=== PATIENT | male | born 1965 | race American Indian/Alaskan Native ===

== ENCOUNTER 2023-09-27 16:16 | Emergency (ER) | payer MEDICAID ==
[~2023-09-27] VITALS: Ht 175.3 cm; Wt 92.2 kg
[2023-09-27 16:22] VITALS: BP 136/72; PULSE 96; RESP 18; TEMP 98.2; O2SAT 97
[2023-09-27 16:58] LABS: BASOPHILS # (AUTO) 0.1 X10'3 (0-0.2); BASOPHILS % (AUTO) 0.8 % (0-1); EOSINOPHILS # (AUTO) 0.1 X10'3 (0-0.9); EOSINOPHILS % (AUTO) 0.8 % (0-6); HEMATOCRIT 39.6 % (42.0-52.0); HEMOGLOBIN 13.5 g/dl (14.0-17.9); LYMPHOCYTES # (AUTO) 1.9 X10'3 (1.1-4.8); MEAN CORPUSCULAR VOLUME 88.2 FL (78-98); MEAN PLATELET VOLUME 7.9 FL (7.4-10.4); MONOCYTES # (AUTO) 0.7 X10'3 (0-0.9); MONOCYTES % (AUTO) 6.6 % (2-12); NEUTROPHILS # (AUTO) 7.7 X10'3 (1.8-7.7); NEUTROPHILS % (AUTO) 73.8 % (42-75); PLATELET COUNT 222 X10'3 (140-440); RED BLOOD COUNT 4.49 X10'6 (4.70-6.10); RED CELL DISTRIBUTION WIDTH 14.4 % (11.5-14.5); WHITE BLOOD COUNT 10.5 X10'3 (4.5-11.0)
[2023-09-27 17:07] LABS: ALANINE AMINOTRANSFERASE 24 U/L (12-78); ALBUMIN 4.1 G/DL (3.4-5.0); ALBUMIN/GLOBULIN RATIO 1.3 (1.1-1.5); ALKALINE PHOSPHATASE 68 IU/L (46-116); ANION GAP 6 (8-16); ASPARTATE AMINO TRANSFERASE 17 U/L (10-37); BILIRUBIN,TOTAL 0.4 MG/DL (0.1-1.0); BLOOD UREA NITROGEN 17 MG/DL (7-18); BUN/CREATININE RATIO 14.4 (10.0-20.0); CALCIUM 8.7 MG/DL (8.5-10.1); CHLORIDE 102 MMOL/L (99-107); CREATININE 1.18 MG/DL (0.60-1.10); GLUCOSE 135 MG/DL (70-104); LIPASE 141 U/L (16-77); POTASSIUM 3.8 MMOL/L (3.5-5.1); SODIUM 138 MMOL/L (135-145); TOTAL CARBON DIOXIDE 29.8 MMOL/L (24-32); TOTAL PROTEIN 7.2 G/DL (6.4-8.2); eCRCL 70 ML/MIN; eGFR 64 ML/MIN
[2023-09-27 18:23] LABS: PRO BRAIN NATRIURETIC PEPTIDE 241 PG/ML (0-125)
== END 2023-09-27 21:12 | disposition home or self-care (01) ==
LOC: ER 16:16
DX: K85.90 Acute pancreatitis without necrosis or infection, unspecified (principal); K29.70 Gastritis, unspecified, without bleeding; I10 Essential (primary) hypertension
CPT/HCPCS: 36415; 71045; 80053; 83690; 83880; 84484; 85025; 93005; 99285

== ENCOUNTER 2024-01-12 12:11 | Emergency (ER) | payer MEDICAID, OTHER ==
[~2024-01-12] VITALS: Ht 175.3 cm; Wt 90.0 kg
[2024-01-12] MEDS: LIDOcaine 1% 30ml preserv. free vial IJ STA (14:15)
[2024-01-12] MEDS: TETanus/Pertussis (Acell)/Diphther VAC/PF (Tdap-Adult) 0.5ml syringe IMVAC ONE (14:48)
[2024-01-12 15:49] VITALS: BP 130/101; PULSE 77; RESP 17; TEMP 97.7; O2SAT 98
== END 2024-01-12 15:54 | disposition home or self-care (01) ==
LOC: ER 12:12
DX: S61.012A Laceration without foreign body of left thumb without damage to nail, initial encounter (principal); I10 Essential (primary) hypertension; W45.8XXA Other foreign body or object entering through skin, initial encounter; Y93.89 Activity, other specified; Y92.89 Other specified places as the place of occurrence of the external cause; Y99.8 Other external cause status
CPT/HCPCS: 12001; 73140; 90471; 90715; 99283

== ENCOUNTER 2025-05-26 09:20 | Emergency (ER) | payer OTHER ==
[~2025-05-26] VITALS: Ht 175.3 cm; Wt 83.7 kg
[2025-05-26 09:39] VITALS: TEMP 97.8
[2025-05-26 10:08] LABS: MEAN PLATELET VOLUME 8.2 FL (7.4-10.4); RED CELL DISTRIBUTION WIDTH 13.6 % (11.5-14.5)
[2025-05-26 10:32] LABS: CREATININE 1.02 MG/DL (0.60-1.10); PRO BRAIN NATRIURETIC PEPTIDE 49 PG/ML (0-125); TOTAL CARBON DIOXIDE 28.1 MMOL/L (24-32); eCRCL 80 ML/MIN; eGFR 75 ML/MIN
--- NOTE | 2025-05-26 10:33 | RADIOLOGY REPORT ---
DI CHEST,SINGLE VIEW, HISTORY: CP COMPARISON: DI CHEST,SINGLE VIEW on DOS: 09/27/23 DI CHEST,SINGLE VIEW on DOS: 09/27/23 TECHNICAL DATA: 1 view of the chest was obtained. FINDINGS: Lines and tubes: None Cardiomediastinal silhouette: normal Pulmonary vasculature: normal Lung expansion: normal Lung airspace: normal Lung interstitium: normal Pleura: normal Pneumothorax: no Bones: Unremarkable Other: no IMPRESSION: No acute intrathoracic abnormality.
[2025-05-26] MEDS ORDERED: OLANZapine **IM** 10 mg inj. IM ONE (10:55)
--- NOTE | 2025-05-26 11:00 | ELECTROCARDIOGRAPH REPORT ---
[facility] Test Date: 2025-05-26 Test Time: 09:43:54 Pat Name: DELICIA GONZALES Department: EMERGENCY ROOM Room: Gender: M Creative Coordinator: ANDREW : 1965 Requested By: NILSON ARRIAGA Order Number: [id number] Reading MD: Measurements Intervals [place] Rate: 72 P: 57 WA: 161 QRS: 52 QRSD: 88 T: 6 QT: 377 QTc: 413 Interpretive Statements Sinus rhythm Please click the below link to view image of tracing.
--- NOTE | 2025-05-26 12:41 | Physician Documentation ---
History of Present Illness ~ Chief Complaint: Dizziness Stated Complaint: HEAT RELATED ILLNESS Time Seen by MD: 10:50 Primary Medical Doctor: DR. FRANKI QUIROZ HPI 59 yom h/o DM2 p/w dizziness. He was outside on a 90 degree day painting when he suddenly felt dizzy and began vomiting. No headache, CP or SOB. Was vomiting up to arrival in ED. No abd pain. No history of similar. He is starting to feel better. Reports still feeling a little shaky. Medication Reconciliation Allergies: Coded Allergies: No Known Allergies (Unverified , 09/27/23) Scheduled PRN ONDANSETRON ODT 4mg tablet (Ondansetron Odt), 1 TAB PO Q6H PRN PRN for nausea/vomiting Past Medical History Past Medical History: Hypertension, Anxiety Alcohol Use: Sober Review of Systems All Other Systems at this time: Reviewed and Negative Constitutional: Denies: fever Respiratory: Denies: shortness of breath, SOB with exertion, SOB at rest Cardiovascular: Denies: chest pain Gastrointestinal: Reports: nausea, vomiting; Denies: abdominal pain, diarrhea Physical Exam Vital Signs: Temperature: 97.8, Source: Oral, Heart Rate: 64, Respiratory Rate: 11, BP: 130/72, Pulse Oximetry: 98, Weight: 83.650 Oxygen Flow Rate: 0 Physical Exam well appearing no distress cn2-12 intact. normal speech. intact strength and sensation. No dysmetria or aphasia. moist mucous membranes ctab no murmur abdomen soft non tender skin pwd Progress Progress Note 110 pm reports feeling better, does not want zofran or zyprexa Results/Orders Reviewed/noted all lab results: Yes (compared to prior labs) Results/Orders Orders - NILSON ARRIAGA MD Chest,Single View (05/26/25 09:43) Monitor (05/26/25 09:43) Saline Lock (05/26/25 09:43) Oxygen (05/26/25 09:43) Completed Orders - NILSON ARRIAGA MD Chest,Single View (05/26/25 09:43) Cbc/Diff (05/26/25 09:43) BMP (05/26/25 09:43) PBNP (05/26/25 09:43) Electrocardiogram (05/26/25 09:43) Hs Troponin I W Calculations (05/26/25 09:43) Hs Troponin I W Calculations (05/26/25 11:43) Hs Troponin I W Calculations (05/26/25 12:43) Olanzapine Im (Zyprexa I.M. Im On (05/26/25 10:55) Olanzapine Im (Zyprexa I.M. Im On (05/26/25 10:55) Ondansetron Disint. Tablet (Zofran Odt T (05/26/25 12:45) Lipase (05/26/25 13:08) CMP (05/26/25 13:08) Vital Signs 05/26/25 05/26/25 05/26/25 05/26/25 09:39 11:19 11:20 11:28 Temp 97.8 Pulse 70 64 Resp 15 11 B/P (MAP) 148/78 130/72 (91) Pulse Ox 97 98 98 O2 Delivery Room Air* O2 Flow Rate 0 0 FiO2 21 05/26/25 13:15 Pulse 82 Resp 15 B/P (MAP) 139/74 (95) Pulse Ox 97 O2 Flow Rate 0 Laboratory Tests Test 05/26/25 09:45 05/26/25 09:51 05/26/25 11:37 05/26/25 12:47 Glucometer 151 H White Blood Count 7.4 Red Blood Count 5.10 Hemoglobin 14.6 Hematocrit 43.2 Mean Corpuscular Volume 84.6 Mean Corpuscular Hemoglobin 28.7 Mean Corpuscular Hemoglobin Concent 33.9 Red Cell Distribution Width 13.6 Platelet Count 224 Mean Platelet Volume 8.2 Neutrophils (%) (Auto) 62.2 Lymphocytes (%) (Auto) 30.2 Monocytes (%) (Auto) 6.0 Eosinophils (%) (Auto) 1.0 Basophils (%) (Auto) 0.6 Neutrophils # (Auto) 4.6 Lymphocytes # (Auto) 2.2 Monocytes # (Auto) 0.4 Eosinophils # (Auto) 0.1 Basophils # (Auto) 0.0 CBC Comment Sodium Level 140 138 Potassium Level 4.1 4.0 Chloride Level 105 106 Carbon Dioxide Level 28.1 25.1 Anion Gap 7 L 7 L Blood Urea Nitrogen 32 H 30 H Creatinine 1.02 0.94 Estimated GFR/1.73 m2 75 83 BUN/Creatinine Ratio 31.4 H 31.9 H Glucose Level 158 H 139 H Calcium Level 8.6 8.7 Troponin I High Sensitivity 4 4 4 Pro-B-Type Natriuretic Peptide 49 Albumin 4.3 4.2 Chemistry Comments Troponin I High Sens Percent Delta 0 0 Troponin I Hi Sens Absolute Change 0 0 Total Bilirubin 0.5 Aspartate Amino Transf (AST/SGOT) 23 Alanine Aminotransferase (ALT/SGPT) 42 Alkaline Phosphatase 62 Total Protein 7.4 Globulin 3.2 Albumin/Globulin Ratio 1.3 Lipase 23 EKG/XRAY/CT/US/VASC/MRI EKG : Additional Comment Independent interpretation of ekg time 943 indication dizziness, nsr rate 72 normal axis and intervals, no st or t wave abnormalities Departure Disposition: 01 HOME / SELF CARE / HOMELESS Impression: Primary Impression: Vomiting Qualified Codes: R11.2 - Nausea with vomiting, unspecified Additional Impression Text 59 yom h/o DM2 presenting with lightheadedness n/v. Labs wnl here. Exam/neuro benign here. Symptoms resolved spontaneously. Additional Instructions: If you have any chest pain or your symptoms reoccur come back to the ED. Referrals: NO PRIMARY CARE PROVIDER (PCP) Prescriptions ONDANSETRON ODT 4mg tablet (ONDANSETRON ODT) 4 Mg Tab.rapdis 1 TAB PO Q6H PRN PRN for nausea/vomiting for 4 Days, #16 TAB 0 Refills Prov: NILSON ARRIAGA MD 05/26/25 Signature Scribe Signature: na Attestation: NILSON Ornelas MD May 26, 2025 12:41
[2025-05-26] MEDS ORDERED: ondansetron 4mg rapidly disintigrating tab PO ONE (12:45)
[2025-05-26] MEDS: OLANZapine **IM** 10 mg inj. IM ONE (13:00)
[2025-05-26 13:28] LABS: CREATININE 0.94 MG/DL (0.60-1.10); TOTAL CARBON DIOXIDE 25.1 MMOL/L (24-32); eCRCL 87 ML/MIN; eGFR 83 ML/MIN
[2025-05-26] MEDS ORDERED: ONDA-243 PO (13:45)
[2025-05-26 14:07] VITALS: BP 147/97; PULSE 80; RESP 18; O2SAT 98
== END 2025-05-26 14:06 | disposition home or self-care (01) ==
LOC: ER 09:20
DX: R11.2 Nausea with vomiting, unspecified (principal); R06.02 Shortness of breath; E11.9 Type 2 diabetes mellitus without complications; I10 Essential (primary) hypertension; F41.9 Anxiety disorder, unspecified; F10.90 Alcohol use, unspecified, uncomplicated; Y90.9 Presence of alcohol in blood, level not specified
CPT/HCPCS: 36415; 71045; 80048; 80053; 82948; 83690; 83880; 84484; 85025; 93005; 99285